=== PATIENT | male | born 1950 | race Caucasian/White ===

== ENCOUNTER 2020-01-08 11:35 | Outpatient (CLI) | payer MEDICARE, OTHER, SELFPAY ==
--- NOTE | ~2020-01-08 | US_ITS ---
EXAMINATION: US venous doppler LE RT DATE: 01/08/2020 12:07 INDICATION: Right lower limb swelling TECHNIQUE: Haines scale images without and with compression and Doppler images of the right lower extre mity veins were obtained. COMPARISON: None FINDINGS: The right common femoral vein, profunda femoral vein, and greater saphenous vein are patent . The femoral vein, popliteal vein, peroneal trunk, posterior tibial veins are thrombosed. IMPRESSION: 1. Deep venous thrombosis from the femoral vein through the posterior tibial veins. Reviewed, dictated and finalized at location A. IMPRESSION: 1. Deep venous thrombosis from the femoral vein through the posterior tibial ve ins.
== END 2020-01-08 11:36 | disposition home or self-care (01) ==
PROVIDERS: PCP Family Medicine; Visit Provider Physician Assistant
DX: R60.0 Localized edema (principal); I82.411 Acute embolism and thrombosis of right femoral vein
CPT/HCPCS: 93971

== ENCOUNTER 2020-08-17 07:35 | Outpatient (CLI) | payer MEDICARE, OTHER, SELFPAY ==
--- NOTE | ~2020-08-17 | XR_ITS ---
EXAMINATION: XR chest 2V 08/17/2020 07:51 INDICATION: Malignant neoplasm with hormone sensitive status PROCEDURE: PA and lateral views of the chest COMPARISON: 10/11/2017 FINDINGS: The lungs are clear. The cardiomediastinal silhouette is within normal limits. There are no pleural effusions. There is no pneumothorax suspected. IMPRESSION: 1: NO ACUTE CARDIOPULMONARY DISEASE. Reviewed, dictated and finalized at location B.
--- NOTE | ~2020-08-17 | NM_ITS ---
EXAMINATION: NM bone scan whole body DATE: 08/17/2020 11:44 INDICATION: Malignant neoplasm TECHNIQUE: 24.6 mCi Tc-99m HDP was administered intravenously. Delayed whole-body scintigrams were o btained. COMPARISON: CT abdomen and pelvis dated 08/17/2020 and chest radiograph dated 08/17/2020 FINDINGS: Mild joint centered increased uptake at the bilateral sternoclavicular, acromioclavicular and glenohu meral joints as well as several costovertebral joints in the thoracic spine. No other suspicious foci of abnormal bone uptake to suggest metastatic disease. IMPRESSION: 1. No suspicious foci to suggest metastatic disease. Reviewed, dictated and finalized at location A.
--- NOTE | ~2020-08-17 | CT_ITS ---
EXAMINATION: CT abdomen pelvis w con DATE: 08/17/2020 08:08 INDICATION: Malignant neoplasm TECHNIQUE: Computed tomography (CT) of the abdomen and pelvis was performed with 100 cc Omnipaque 350 intravenous contrast. The dose-length product was 429.37 mGy-cm. Automated exposure control and iter ative reconstruction technique were employed. COMPARISON: None. FINDINGS: Lung bases unremarkable. Heart size normal. No significant pleural or pericardial effusion. Small hiatal hernia. There is mild atherosclerosis of the aorta without aneurysm. No lymphadenopathy . Enlarged prostate gland. Incidental note is made of left scrotal calcification. Small fat-containin g umbilical hernia. Multiple liver cysts, largest measuring approximately 2 cm. Fatty infiltration of the liver. The sple en, pancreas, adrenal glands are unremarkable. No significant hydronephrosis. Gallbladder is contract ed. There are small subcentimeter hypodensities of the kidneys, too small to characterize, although l ikely benign cysts. Nonobstructive bowel gas pattern. Normal appendix. Colonic diverticulosis without evidence for diverticulitis. No free air or free fluid. Mild lumbar spondylosis for age. Wedge defor mity of L1 is likely chronic. No lytic or blastic lesions identified. Mild osteoarthritis of the hips . Small fat-containing right inguinal hernia. IMPRESSION: 1. Prostate enlargement. 2: Fatty infiltration of the liver with multiple cysts. 3: Small hiatal hernia. Small fat-containing umbilical hernia. Reviewed, dictated and finalized at location B.
[2020-08-17 07:59] LABS: Estimated Glomerular Filt Rate 54
== END 2020-08-17 07:36 | disposition home or self-care (01) ==
PROVIDERS: PCP Family Medicine; Visit Provider Urology
DX: C80.1 Malignant (primary) neoplasm, unspecified (principal); Z19.1 Hormone sensitive malignancy status; N40.0 Benign prostatic hyperplasia without lower urinary tract symptoms; K76.0 Fatty (change of) liver, not elsewhere classified; K44.9 Diaphragmatic hernia without obstruction or gangrene
CPT/HCPCS: 71046; 74177; 78306; A9561; Q9967

== ENCOUNTER 2020-09-07 10:01 | Outpatient (CLI) | payer MEDICARE, OTHER, SELFPAY ==
--- NOTE | 2020-09-07 11:06 | ECG_ITS ---
Measurements Intervals [place] Rate: 50 P: 65 VA: 192 QRS: -33 QRSD: 108 T: -4 QT: 458 QTc: 420 Interpretive Statements SINUS BRADYCARDIA ATRIAL PREMATURE COMPLEX POSSIBLE LEFT ATRIAL ENLARGEMENT LEFT AXIS DEVIATION INCOMPLETE RIGHT BUNDLE BRANCH BLOCK POOR R WAVE PROGRESSION, ANTERIOR LEADS BORDERLINE ST-T WAVE ABNORMALITY- INFERIOR LEADS BORDERLINE ECG Electronically Signed On 09-07-2020 12:19:52 CDT by Duane Kraus D.O.
[2020-09-07 12:10] LABS: Basophils Percent Auto 0.6 % (0.2-1.2); Eosinophils Absolute Auto 0.1 K/mm3 (0-0.3); Hematocrit 46.9 % (42.0-52.0); Hemoglobin 16.1 g/dL (14.0-18.0); Immature Granulocyte Absolute 0.02 K/mm3 (0.00-0.031); Immature Granulocyte Percent A 0.3 % (0-0.5); Lymphocytes Absolute Auto 1.21 K/mm3 (0.9-3.2); Lymphocytes Percent Auto 17.1 % (18.3-44.2); Mean Corpuscular HGB Conc 34.3 g/dl (32-36); Mean Corpuscular Hemoglobin 31.2 pg (26-34); Mean Corpuscular Volume 90.9 fl (80-100); Mean Platelet Volume 9.6 fl (7.4-10.4); Monocytes Absolute Auto 0.6 K/mm3 (0.1-0.6); Monocytes Percent Auto 8.5 % (2.6-8.5); Neutrophils Absolute Auto 5.1 K/mm3 (1.3-6.7); Neutrophils Percent Auto 71.5 % (45.5-73.1); Platelet Count Result 187 k/mm3 (150-375); Red Blood Count 5.16 M/mm3 (4.6-6.20); Red Cell Distribution Width 12.1 % (11.5-14.5); White Blood Count 7.1 K/mm3 (4.5-10.0)
[2020-09-07 12:12] LABS: Add Urine Microscopic? NO; Appearance Urine Clear (Clear); Bilirubin Urine Negative (Negative); Blood Urine Negative (Negative); Color Urine Yellow (Yellow); Glucose Urine UA Negative (Negative); Ketones Urine Negative (Negative); Leukocyte Esterase Ur Negative LEU/UL (Negative); Nitrate Urine Negative (Negative); Protein Urine Negative (Negative); Specific Grav Ur 1.017 (1.001-1.035); Urobilinogen Urine Negative mg/dL (<2.0)
[2020-09-07 12:19] LABS: INR 0.9; Prothrombin Time 12.5 Seconds (11.1-14.7)
[2020-09-07 12:20] LABS: Partial Thromboplastin Time 22.2 SECONDS (22.3-36.8)
[2020-09-07 12:23] LABS: Alanine Aminotransferase 18 U/L (4-50); Albumin Level 4.1 g/dL (3.5-5.1); Alkaline Phosphatase 59 U/L (38-126); Anion Gap 4 mmol/L (8-16); Aspartate Amino Transferase 27 U/L (17-59); Bilirubin,Total 0.7 mg/dL (0.2-1.3); Blood Urea Nitrogen 18 mg/dL (9-20); Calcium 9.1 mg/dL (8.4-10.2); Carbon Dioxide 30 mmol/L (22-30); Chloride 105 mmol/L (98-107); Estimated Glomerular Filt Rate 60; Glucose 91 mg/dL (75-110); Sodium 139 mmol/L (137-145)
== END 2020-09-07 10:02 | disposition home or self-care (01) ==
LOC: ANHSURGERY 10:05
PROVIDERS: PCP Family Medicine; Visit Provider Urology
DX: C61 Malignant neoplasm of prostate (principal); Z01.818 Encounter for other preprocedural examination; I45.10 Unspecified right bundle-branch block
CPT/HCPCS: 36415; 80053; 81003; 85025; 85610; 85730; 86850; 86900; 86901; 93005

== ENCOUNTER → 2020-09-14 04:33 | Outpatient (CLI) | payer MEDICARE, OTHER, SELFPAY ==
[2020-09-14 19:57] LABS: SARS-CoV-2 RNA PCR Negative
== END ==
PROVIDERS: PCP Family Medicine; Visit Provider Urology
DX: Z01.812 Encounter for preprocedural laboratory examination (principal); Z20.822 Contact with and (suspected) exposure to COVID-19
CPT/HCPCS: C9803; U0003; U0005

== ENCOUNTER 2020-09-17 01:51 | Day surgery (SDC) | payer MEDICARE, OTHER, SELFPAY ==
[2020-09-07 10:37] VITALS: BMI 26.5
[2020-09-07 11:05] VITALS: BP 138/86; PULSE 55; RESP 16; TEMP 36.9; O2SAT 99
--- NOTE | 2020-09-14 07:50 | PM.IMHP ---
H&P: HPI History of Present Illness Date/Time: 09/14/20 07:50 Patient is a 70-year-old white male recently found to have a PSA of 10.6. Prostate biopsy revealed prostate adenocarcinoma Samina 7 8 and 9 in 6 of [address] scan of the abdomen and pelvis, bone scan and chest x-ray showed no evidence of metastatic disease. Prostate volume by ultrasound was 40.4 cc. After careful discussion of therapeutic options including active surveillance, radiation therapy and its various forms, robotic prostatectomy an androgen deprivation, he has opted for the surgical treatment. He is aware the risk including, but not limited to, failure to control his cancer, adverse cardiopulmonary events, urinary incontinence, erectile dysfunction and rectal injury. Chief Complaint: Prostate cancer Review of Systems Cardiovascular: Cardiovascular: Denies chest pain, Denies lightheadedness, Denies palpitations and Denies dyspnea Respiratory: Respiratory: Denies dyspnea Gastrointestinal: Gastrointestinal: Denies diarrhea, Denies nausea and Denies vomiting Genitourinary: Genitourinary: Denies hematuria and Denies dysuria Endocrine: Endocrine: Denies palpitations [facility] Past Medical History Medical History (Updated 09/14/20 @ 07:53 by Ben Nicholson MD) Hepatitis C antibody test negative (01/09/17) History of broken nose (~1973) Surgical History Surgical History History of ankle surgery Family History Family History Father Diabetes mellitus Family history of glaucoma Hypertension Malignant neoplasm of prostate Family history of coronary artery disease Mother Hypertension Cerebrovascular accident Family history of dementia Social History Social History Smoking status: Never smoker Alcohol intake: current Spiritual care concerns: No Meds Home Medications and Allergies Home Medications Medication Instructions Recorded Confirmed Type finasteride 5 mg tablet 5 mg PO QPM 10/10/19 09/07/20 History Allergies Allergy/AdvReac Type Severity Reaction Status Date / Time nut - unspecified Allergy Unknown gets skin Verified 09/07/20 10:11 nodules under his skin prednisone Allergy Unknown mottled Verified 09/07/20 10:11 tongue Exam Const: General: no acute distress Resp: Effort & Inspection: normal respiratory effort GI: Inspection: non-distended GI Palp: No abdominal tenderness and No Guarding due to palpation present (GI) Auscultation: normal bowel sounds Assessment and Plan Assessment and plan (1) Prostate cancer: Code(s): C61 - Malignant neoplasm of prostate Status: Acute Assessment and Plan: Robotic assisted prostatectomy and bilateral pelvic lymphadenectomy.
--- NOTE | 2020-09-16 11:12 | WPDANESEPPF ---
Anes - Initial Pre Proc Eval Procedure: Operation Date: 09/17/20 07:30 Proposed Procedures p Robotic Assisted Laparoscopic Prostatectomy With Bilateral Lymph Node Dissection - Ben Nicholson MD Date/Time: 09/16/20 11:12 Surgeon: Ben Nicholson MD Pre Op Diagnosis: prostate ca Patient Data Age: 70 Gender: M Height: 1.73 m Weight: 79.2 kg Last Vital Signs Temp 36.9 C 09/07/20 11:05 Pulse 55 L 09/07/20 11:05 Resp 16 09/07/20 11:05 BP 138/86 09/07/20 11:05 Pulse Ox 99 09/07/20 11:05 Allergies Allergy/AdvReac Type Severity Reaction Status Date / Time nut - unspecified Allergy Mild gets skin Verified 09/17/20 06:00 nodules under his skin prednisone Allergy Mild mottled Verified 09/17/20 06:00 tongue Home Medications Medication Instructions Recorded Confirmed Type finasteride 5 mg tablet 5 mg PO QPM 10/10/19 09/17/20 History ECG: Date of Service: 09/07/20 Procedure(s): CA 12 lead EKG Accession Number(s): [id number] cc: ~ Measurements Intervals [place] Rate: 50 P: 65 MD: 192 QRS: -33 QRSD: 108 T: -4 QT: 458 QTc: 420 Interpretive Statements SINUS BRADYCARDIA ATRIAL PREMATURE COMPLEX POSSIBLE LEFT ATRIAL ENLARGEMENT LEFT AXIS DEVIATION INCOMPLETE RIGHT BUNDLE BRANCH BLOCK POOR R WAVE PROGRESSION, ANTERIOR LEADS BORDERLINE ST-T WAVE ABNORMALITY- INFERIOR LEADS BORDERLINE ECG Electronically Signed On 09-07-2020 12:19:52 CDT by Duane Kraus D.O. Dictated By: Duane Kraus DO 09/07/20 1219 Patient hx anesthesia problems: none Family hx anesthesia problems: none PMFSH Past Medical History Medical History (Updated 09/16/20 @ 11:12 by Dusty Baires MD) DVT (deep venous thrombosis) Hepatitis C antibody test negative (01/09/17) History of broken nose (~1973) Prostate cancer Pure hypercholesterolemia, unspecified Surgical History Surgical History History of ankle surgery Family History Family History Father Diabetes mellitus Family history of glaucoma Hypertension Malignant neoplasm of prostate Family history of coronary artery disease Mother Hypertension Cerebrovascular accident Family history of dementia Social History Social History Alcohol intake: current Living arrangements: with family Spiritual care concerns: No Anes - Eval Final PreProcedure Day of Procedure 09/16/20 11:12 Patient weight: obese Heart: regular rate and rhythm Lungs: clear to auscultation and normal air movement Airway: Mallampati scale class II Neurological: alert and oriented Last oral intake: >/= 8 hours ASA classification: III Emergent: no Anesthetic plan: proceed Anesthesia type and monitoring: general ETT Informed Consent: The patient's anesthetic plan and its attendant risks and benefits were discussed with the patient/family/POA. Questions were solicited and answers provided to the satisfaction of the patient/family/POA.
[2020-09-17] VITALS (12 sets, daily range): BP systolic 112–151; BP diastolic 45–85; PULSE 49–75; RESP 14–18; TEMP 36–37.1; O2SAT 94–100; BMI 26.6
[2020-09-17] MEDS: LACTATED RINGERS 1,000 ML 30 ML IV CONT ×3 (06:35→11:35)
--- NOTE | 2020-09-17 06:53 | WPDHPUPDATE1 ---
History and Physical Update Update Date/Time: 09/17/20 06:53 History and Physical has been reviewed, including an updated exam of the patient. There are NO changes in the patient's condition. Risks, benefits, and alternatives have been discussed and questions answered. Patient agrees to proceed with procedure.
[2020-09-17] MEDS: ceFAZolin 2 GM/D5W 50 ML 2 GM/50 ML BAG IVPB (07:18)
--- NOTE | 2020-09-17 11:05 | PM.PROC ---
Procedure Note - Detailed Date of procedure: 09/17/20 Pre-op diagnosis: prostate ca Post-op diagnosis: same Procedure performed: Robotic assisted laparoscopic prostatectomy and bilateral pelvic lymphadenectomy. Description of procedure: The patient was brought to the operative suite, where he was prepped and draped in routine sterile fashion while in a dorsal lithotomy, deep Trendelenburg position. A supraumbilical 10 mm trocar was placed after insufflation of the abdomen with a Veress needle. Three robotic ports were then placed under direct vision. Two of these were placed in the right lower quadrant - 10 cm and 20 cm lateral to, and in line with, the umbilicus. A third robotic trocar was placed 10 cm to the left of the umbilicus, and 20 cm to the left of the umbilicus, a 12 mm standard laparoscopic trocar was placed to be used as an automobile mechanic assistant port. Lastly, a 5 mm trocar was placed in the left upper quadrant midway between the umbilicus and the left robotic trocar. Attention was then turned to the prostatectomy. I opted for a posterior approach in this patient. An incision was made in the parietal peritoneum along the posterior bladder/posterior prostate about 2 cm above the reflection of the peritoneum over the anterior rectum. The seminal vesicles and vas deferens were immediately identified. Dissection is undertaken in a fashion so as to avoid electrocautery as much as possible, particularly near the tips of the seminal vesicles. Dissection was also carried out in the midline so as to avoid any encounters with the ureters. The vas deferens and the seminal vesicles were dissected in their entirety to the base of the prostate. The plane anterior to Denoviller's fascia, anterior to the rectum and posterior to the prostate was then developed. I then dropped the bladder by incising the anterior parietal peritoneum just lateral to the median umbilical ligaments bilaterally. The bladder was dropped from the anterior abdominal and pelvic wall. The endopelvic fascia was identified and incised bilaterally, allowing for dissection of the posterior-lateral aspect of the prostate. The puboprostatic ligaments were transected near their origin from the posterior pubic ramus. This posterior lateral dissection of the prostate is also undertaken in a fashion so as to avoid electrocautery as much as possible. The dorsal vein of the penis is then secured with an 0 -Vicryl ligature. Attention is then turned to the bladder neck. The anterior bladder neck is incised at the vesico-prostatic junction. The previously placed urethral catheter was drawn through the urethrotomy. A very small bladder neck was maintained throughout the remainder of this dissection. The posterior bladder neck was incised in a fashion so as to avoid any injury to the ureteral orifices. Again, the small aperture of the bladder neck was maintained. The previously dissected vas deferens and the seminal vesicles were brought through the posterior bladder neck incision. The lateral prostatic pedicles were then carefully dissected from the lateral aspect of the prostate bilaterally. The prostatic pedicles were secured with Weck clips and transected. The neurovascular bundles were carefully dissected from the posterior-lateral aspect of the prostate. The dorsal vein of the penis was incised with electrocautery. Using cold scissors, the urethra was incised. After withdrawing the previously placed urethral catheter, the posterior urethra was sharply incised, as was the rectalurethralis muscle. Attention was then turned to a bilateral pelvic lymphadenectomy. The limits of this dissection were similar bilaterally. Specifically, the limits were the bifurcation of the common iliac vein proximally, the inguinal ligament distally, the obturator nerve posteriorly and the anterior aspect to the external iliac vein laterally. This dissection was undertaken with care to avoid any injury to the obturator nerve. The p
[2020-09-17] MEDS: fentaNYL CITRATE INJ (*CRX) 100 MCG/2 ML VIAL 25 MCG IV PUSH (11:41)
--- NOTE | 2020-09-17 12:15 | ADMGEN ---
This patient, Zeyad Baires, was admitted to Medical Room 261-01 from PACU report received from [facility]. Patient/family oriented to hospital policies and general routines including ID bracelet, bed and alarms, visiting hours, pain management, procedures, bathroom and other care routines, personal items, smoking policy, room service/diet, and visiting hours. Information on how to activate the Rapid Response Team has been discussed. Patient/Family are encouraged to report perceived risks to care and to ask questions if they do not understand what they are told or what they should do.
[2020-09-17] MEDS: LACTATED RINGERS 1,000 ML 125 ML IV CONT ×2 (13:00→21:06)
[2020-09-18 00:22] VITALS: BP 133/75; PULSE 55; RESP 18; TEMP 36.9; O2SAT 99
[2020-09-18 05:33] LABS: Hematocrit 41.9 % (42.0-52.0); Hemoglobin 14.6 g/dL (14.0-18.0)
[2020-09-18] MEDS: LACTATED RINGERS 1,000 ML 125 ML IV CONT ×2 (05:35→14:13)
[2020-09-18 05:40] LABS: Anion Gap 2 mmol/L (8-16); Blood Urea Nitrogen 13 mg/dL (9-20); Calcium 8.3 mg/dL (8.4-10.2); Carbon Dioxide 25 mmol/L (22-30); Chloride 110 mmol/L (98-107); Estimated CRCL calculation 48 ml/min; Estimated Glomerular Filt Rate 60; Glucose 103 mg/dL (75-110); Sodium 137 mmol/L (137-145)
[2020-09-18 05:48] VITALS: BP 127/71; PULSE 61; RESP 20; TEMP 37; O2SAT 95
[2020-09-18 06:00] VITALS: BP 127/71; PULSE 61; RESP 20; TEMP 37; O2SAT 95
--- NOTE | 2020-09-18 06:56 | WPDUROPN2 ---
Progress Note: A&P Assessment and Plan (1) Prostate cancer: Code(s): C61 - Malignant neoplasm of prostate Status: Acute Assessment and Plan: Increase diet/activity. Likely home this afternoon. Subjective Subjective Date/Time Seen: 09/18/20 06:56 Mild right shoulder discomfort without weakness. Otherwise, doing well. Review of Systems Cardiovascular: Cardiovascular: Denies chest pain, Denies lightheadedness, Denies palpitations and Denies dyspnea Respiratory: Respiratory: Denies dyspnea Gastrointestinal: Gastrointestinal: Denies diarrhea, Denies nausea and Denies vomiting Genitourinary: Genitourinary: Denies hematuria and Denies dysuria Endocrine: Endocrine: Denies palpitations Exam Const: General: no acute distress Resp: Effort & Inspection: normal respiratory effort GI: Inspection: normal to inspection and non-distended GI Palp: No abdominal tenderness and No Guarding due to palpation present (GI) Auscultation: normal bowel sounds Objective Data Vital Signs Vital Signs: Vital Signs - 24 hr 09/17/20 07:06 09/17/20 10:50 09/17/20 11:00 Temperature 97.5 F L 97.1 F L Pulse Rate 51 L 62 59 L Respiratory Rate 16 15 16 Blood Pressure 122/78 121/75 113/65 Pulse Oximetry 96 98 99 09/17/20 11:15 09/17/20 11:32 09/17/20 11:54 Temperature Pulse Rate 53 L 54 L 49 L Respiratory Rate 14 16 16 Blood Pressure 112/45 L 119/70 125/73 Pulse Oximetry 98 98 100 09/17/20 12:20 09/17/20 12:35 09/17/20 13:05 Temperature 96.8 F L 96.9 F L 97.4 F L Pulse Rate 57 L 50 L 66 Respiratory Rate 14 14 14 Blood Pressure 135/77 136/75 150/74 H Pulse Oximetry 99 98 100 09/17/20 14:00 09/17/20 18:00 09/17/20 21:48 Temperature 97.3 F L 98.2 F 98.7 F Pulse Rate 59 L 75 67 Respiratory Rate 14 18 18 Blood Pressure 131/79 151/85 H 133/70 Pulse Oximetry 100 95 94 09/18/20 00:22 Temperature 98.5 F Pulse Rate 55 L Respiratory Rate 18 Blood Pressure 133/75 Pulse Oximetry 99 Intake/Output Intake/Output: Intake & Output 09/15/20 09/16/20 09/17/20 09/18/20 23:59 23:59 23:59 23:59 Intake Total 2660 1200 Output Total 500 Balance 2160 1200 Meds/Results Medications: Active Medications Generic Name Dose Route Start Last Admin Trade Name Freq PRN Reason Stop Dose Admin Fentanyl Citrate 25 mcg 09/16/20 11:10 09/17/20 11:41 Fentanyl Citrate Inj (*Crx) 100 Mcg/2 Ml Vial IV PUSH 25 mcg Q2M PRN Administration Pain Hydromorphone HCl 0.25 mg 09/16/20 11:10 Hydromorphone Hcl Inj (*Crx) 1 Mg/Ml Syr IV PUSH Q5M PRN Pain Hyoscyamine 0.125 mg 09/17/20 12:03 Hyoscyamine Sulfate 0.125 Mg Tablet SUBLINGUAL Q4H PRN Bladder Spasm Lactated Ringer's 1,000 mls @ 30 mls/hr 09/16/20 11:10 09/17/20 14:47 Lr - Lactated Ringers Iv IV CONT Not Given .Q24H ZACKARY Lactated Ringer's 1,000 mls @ 30 mls/hr 09/16/20 11:10 09/17/20 12:02 Lr - Lactated Ringers Iv IV CONT Infused .Q24H ZACKARY Infusion Lactated Ringer's 1,000 mls @ 125 mls/hr 09/17/20 12:03 09/18/20 05:35 Lr - Lactated Ringers Iv IV CONT 125 mls/hr .Q8H ZACKARY Administration Acetaminophen 1,000 mg in 100 mls @ 400 mls/hr 09/17/20 13:00 09/18/20 06:34 Ofirmev 1,000 Mg Ivpb IVPB 09/18/20 13:01 Infused Q6H ZACKARY Infusion Ketorolac Tromethamine 15 mg 09/17/20 12:03 Ketorolac 15 Mg/Ml Vial (*Bkc) IV PUSH 09/18/20 12:04 Q6H PRN Pain Rated 4-6 Levofloxacin 500 mg 09/18/20 09:00 Levofloxacin Tab 500 Mg Tablet PO DAILY ZACKARY Naloxone HCl 0.1 mg 09/17/20 12:03 Naloxone Hcl 0.4 Mg/Ml Vial IV PUSH Q2M PRN Opiate Reversal Ondansetron HCl 4 mg 09/16/20 11:10 Ondansetron Inj 4 Mg/2 Ml Vial IV PUSH ONCE PRN Nausea Oxycodone HCl 5 mg 09/16/20 11:10 Oxycodone Hcl (*Crx) 5 Mg Tab Ir PO ONCE PRN Pain Labs Labs: Laboratory Results - last 24 hr 09/18/20 09/18/20 05:12 05:12 Hgb 14
--- NOTE | 2020-09-18 08:54 | WPDANESPN ---
Anes - Prog Note Post-Op Date/Time: 09/18/20 08:54 Cardiovascular status: normal Respiratory status: normal Airway patency: baseline Mental status: baseline Post-Op hydration status: normal Vital Signs: Last Vital Signs Temp 37.0 C 09/18/20 06:00 Pulse 61 09/18/20 06:00 Resp 20 09/18/20 06:00 BP 127/71 09/18/20 06:00 Pulse Ox 95 09/18/20 06:00 Pain Score (VAS): 0 I/O: Intake & Output 09/17/20 09/18/20 09/18/20 23:59 07:59 15:59 Intake Total 1840 1500 Output Total 500 2700 Balance 1340 -1200 Laboratory Tests 09/18/20 05:12 09/18/20 05:12 09/18/20 09/18/20 05:12 05:12 Hgb 14.6 Hct 41.9 L Sodium 137 Potassium 4.0 Chloride 110 H Carbon Dioxide 25 Anion Gap 2 L BUN 13 D Creatinine 1.20 Estim Creat Clear Calc 48 Estimated GFR 60 Glucose 103 Calcium 8.3 L Post-procedural complaints: none Patient Feedback: Patient satisfied with anesthetic care.
[2020-09-18 09:48] VITALS: BP 176/86; PULSE 59; RESP 18; TEMP 36.2; O2SAT 99
[2020-09-18] MEDS: KETOROLAC 15 MG/ML VIAL (*BKC) IV PUSH (10:19)
[2020-09-18 14:00] VITALS: BP 125/67; PULSE 60; RESP 16; TEMP 36.5; O2SAT 95
--- NOTE | 2020-09-18 16:39 | PM.DS ---
DS: Admitting Diagnosis Admitting Diagnosis Admitting Diagnosis: Prostate cancer DS: Discharge Diagnosis Discharge Diagnosis (1) Prostate cancer: Code(s): C61 - Malignant neoplasm of prostate Status: Acute DS: Summary Hospital Course Hospital Course: This patient was admitted on the morning of his planned robotic prostatectomy. This procedure was uneventful, as was his postoperative course. By the evening of the procedure he was sitting at the bedside in tolerating a liquid diet. The following morning he was ambulating freely and tolerating regular food. His catheter drainage remained essentially clear throughout. His postoperative hemoglobin and serum creatinine were unremarkable. At the time of discharge he has been instructed in appropriate care for his Beck[place] catheter with both a leg bag and bedside bag. He will be discharged with plans to follow-up in 1 week with a cystogram. Time Spent with Patient Time attestation: Total time spent providing and/or coordinating discharge services: 15min Exam Const: General: no acute distress Resp: Effort & Inspection: normal respiratory effort GI: Inspection: non-distended GI Palp: No abdominal tenderness and No Guarding due to palpation present (GI) Auscultation: normal bowel sounds Urinary Catheter: Urinary Catheter: patent and draining and urine clear DS: Data Data Completed and Pending Pending studies at discharge: Pending at discharge 09/17/20 08:49 Surgical [PTH] Routine Surgical [PTH] Routine Surgical [PTH] Routine Labs on day of discharge: Labs from last 24 hours 09/18/20 09/18/20 05:12 05:12 Hgb 14.6 Hct 41.9 L Sodium 137 Potassium 4.0 Chloride 110 H Carbon Dioxide 25 Anion Gap 2 L BUN 13 D Creatinine 1.20 Estim Creat Clear Calc 48 Estimated GFR 60 Glucose 103 Calcium 8.3 L Discharge Plan Discharge Patient Disposition: Home, Self-Care Discharge Instructions: 1) Beckford catheter -> leg bag / bedside bag at night. 2) No lifting/straining >15lbs. x3 weeks. 3) No driving x1-week. 4) Resume normal, pre-operative diet. 5) My office will contact regarding follow-up in 1-week with cystogram. Stand Alone Forms: General Discharge Instructions Discharge Orders: Discharge Order (Routine); Ordered 09/18/20 Ordered By: Ben Nicholson Discharge Medications: New hydrocodone-acetaminophen 5-325 mg tablet 1 - 2 tablet PO Q6H PRN (Reason: pain) Qty: 24 RF: 0 ciprofloxacin HCl 500 mg tablet 500 mg PO Q12H Qty: 10 RF: 0 docusate sodium [Colace] 100 mg capsule 100 mg PO DAILY Qty: 30 RF: 0 hyoscyamine sulfate 0.125 mg tablet 0.125 mg PO Q6H PRN (Reason: bladder spasms) Qty: 20 RF: 2 Discontinued finasteride 5 mg tablet 5 mg PO QPM RF: 0
== END 2020-09-18 17:20 | disposition home or self-care (01) ==
LOC: ANHSURGERY 05:52 → ANH2MED 12:10
PROVIDERS: PCP Family Medicine; Visit Provider Urology
PROC: 0VT04ZZ Resection of Prostate, Percutaneous Endoscopic Approach (ICD-10-PCS; CPT 55867; principal; 2020-09-17 07:30)
DX: C61 Malignant neoplasm of prostate (principal); N40.0 Benign prostatic hyperplasia without lower urinary tract symptoms; Z86.718 Personal history of other venous thrombosis and embolism
CPT/HCPCS: 55866; 38571; 36415; 80048; 85014; 85018; 88305; 88307; 88309; A9270; J0131; J0690; J1885; J3010; J7030; J7120; Q9968

== ENCOUNTER 2020-09-25 10:57 | Outpatient (CLI) | payer MEDICARE, OTHER, SELFPAY ==
--- NOTE | ~2020-09-25 | XR_ITS ---
EXAMINATION: XR cystogram DATE: 09/25/2020 11:49 INDICATION: Prostate cancer TECHNIQUE: Water-soluble contrast was gravity-infused through the patient's Beckford catheter. Multiple fluoroscopic images were obtained. Fluoroscopy exposure time was 1.3 minutes. The DAP for this proced ure was 17.674 Gycm2. COMPARISON: None. FINDINGS: The bladder contour is normal. There is no evidence of contrast leakage from the bladder. T here is mild osteoarthritis of the hips. Vascular calcifications are noted. IMPRESSION: 1. No evidence of bladder leak. Reviewed, dictated and finalized at location A.
== END 2020-09-25 10:58 | disposition home or self-care (01) ==
PROVIDERS: PCP Family Medicine; Visit Provider Urology
DX: C61 Malignant neoplasm of prostate (principal)
CPT/HCPCS: 51600; 74430; Q9967

== ENCOUNTER 2021-05-26 11:27 | Outpatient (CLI) | payer MEDICARE, OTHER, SELFPAY ==
--- NOTE | ~2021-05-26 | XR_ITS ---
XR chest 2V DATE: 05/26/2021 11:50 INDICATION: Cough TECHNIQUE: PA and lateral views COMPARISON: 08/17/2020 PA and lateral chest FINDINGS: Heart size is within normal range. Is aortic calcification, ectasia and tortuosity. No kris r or mediastinal enlargement is detected. No pulmonary infiltrate or consolidation, pleural effusion or pulmonary vascular congestion or pneumo thorax is detected. IMPRESSION: No active cardiopulmonary disease or significant change since 08/17/2020 Reviewed, dictated and finalized at location A. RANCE CLAIMS REPRESENTATIVE IMPRESSION: No active cardiopulmonary disease or significant change since 2020
== END 2021-05-26 11:28 | disposition home or self-care (01) ==
PROVIDERS: PCP Family Medicine; Visit Provider Family Medicine
DX: R05.9 Cough, unspecified (principal)
CPT/HCPCS: 71046

== ENCOUNTER 2022-01-05 13:31 | Outpatient (CLI) | payer MEDICARE, OTHER, SELFPAY ==
--- NOTE | ~2022-01-05 | PE_ITS ---
EXAMINATION: PET_PETPSMAST_PT DATE: 01/05/2022 16:01 INDICATION: Prostate cancer. TECHNIQUE: 10.038 mCi Piflufolastat F-18 was administered i.v. Low dose computed tomography (CT) imag es were acquired from the base of the brain to the proximal thighs for attenuation correction and hannah tomic localization. Automated exposure control was employed. Dose-length product (DLP) was 631 mGy-cm . Positron emission tomography (PET) images were acquired in the same distribution. COMPARISON: Bone scan 08/17/2020, CT abdomen and pelvis 08/17/2020 FINDINGS: Head/neck: There are no pathologically enlarged lymph nodes. There is mucosal thickening in the paran ariadna sinuses. Chest: There is mild scarring at the lung apices. No pleural effusion. Cardiomegaly is noted. There a re coronary artery calcifications. No pericardial effusion. There is mild bilateral gynecomastia. The re are no pathologically enlarged lymph nodes. Abdomen/pelvis/proximal thighs: There are cysts in the liver measuring up to 2.4 cm. The gallbladder, spleen, pancreas, adrenal glands, and kidneys are normal. There is an umbilical hernia containing fa t. There is a right inguinal hernia containing fat. There are changes of prostatectomy. There are no dilated loops of bowel. The appendix is normal. There are no pathologically enlarged lymph nodes. The re is no free intraperitoneal fluid. There is a 1.7 x 0.8 cm sclerotic lesion in left ischium without increased activity. This finding is unchanged in size from 08/17/2020, but demonstrates interval decr ease in attenuation. Bone scan on 08/17/20 did not show increased activity in this area. IMPRESSION: 1. Chronic sclerotic lesion in left ischium without increased activity. This finding may be a benign bone island or metastatic disease. Reviewed, dictated and finalized at location A. IMPRESSION: 1. Chronic sclerotic lesion in left ischium without increased activity. This fi nding may be a benign bone island or metastatic disease.
== END 2022-01-05 13:32 | disposition home or self-care (01) ==
PROVIDERS: PCP Family Medicine; Visit Provider Urology
DX: C61 Malignant neoplasm of prostate (principal); C79.51 Secondary malignant neoplasm of bone
CPT/HCPCS: 78815; A9595

== ENCOUNTER 2022-01-18 08:32 | Outpatient (CLI) | payer MEDICARE, OTHER, SELFPAY ==
--- NOTE | ~2022-01-18 | NM_ITS ---
EXAMINATION: NM bone scan whole body DATE: 01/18/2022 12:36 INDICATION: Malignant neoplasm of the prostate TECHNIQUE: 28.5 mCi Tc-99m HDP was administered intravenously. Delayed whole-body scintigrams were o btained. COMPARISON: Bone scan dated 08/17/2020. PET/CT dated 01/05/2022 FINDINGS: Small focus of mild increased uptake in the region of the right patella which could be related either patellofemoral osteoarthritis or distal quadriceps enthesopathy. No other suspicious foci of abnorma l bone uptake to suggest metastatic disease. IMPRESSION: 1. No osseous metastatic disease. Reviewed, dictated and finalized at location A.
== END 2022-01-18 08:33 | disposition home or self-care (01) ==
PROVIDERS: PCP Family Medicine; Visit Provider Radiology Radiation Oncology
DX: C61 Malignant neoplasm of prostate (principal)
CPT/HCPCS: 78306; A9561

== ENCOUNTER 2022-01-26 14:25 | Outpatient (CLI) | payer MEDICARE, OTHER, SELFPAY ==
--- NOTE | ~2022-01-26 | MR_ITS ---
EXAMINATION: MR pelvis wo/w con DATE: 01/26/2022 15:15 INDICATION: Malignant neoplasm of prostate. TECHNIQUE: Magnetic resonance imaging (MRI) of the pelvis was performed without and with 15 mL MultiH ance intravenous contrast. COMPARISON: Head CT 01/05/2022 FINDINGS: The prostate is absent. There is a right inguinal hernia containing fat. There are no pathologically enlarged lymph nodes. IMPRESSION: 1. No evidence of metastatic disease. Reviewed, dictated and finalized at location A.
== END 2022-01-26 14:26 | disposition home or self-care (01) ==
LOC: ANHIMG 14:31
PROVIDERS: PCP Family Medicine; Visit Provider Radiology Radiation Oncology
DX: C61 Malignant neoplasm of prostate (principal)
CPT/HCPCS: 72197; A9577

== ENCOUNTER 2023-02-08 09:13 | Outpatient (CLI) | payer MEDICARE, OTHER, SELFPAY ==
--- NOTE | ~2023-02-08 | US_ITS ---
EXAMINATION: US venous doppler LE RT DATE: 02/08/2023 10:06 INDICATION: Right lower limb pain TECHNIQUE: Grayscale ultrasound images without and with compression and Doppler ultrasound images of the right lower extremity veins were obtained. COMPARISON: 01/08/2020 FINDINGS: There is residual peripheral nonocclusive likely chronic deep venous thrombosis in the partially comp ressible right popliteal, gastrocnemius and distal femoral veins. The visualized portions of right co mmon femoral vein, profunda (deep) femoral vein, proximal to mid femoral vein, posterior tibial veins , peroneal veins and greater saphenous vein outflow are patent. IMPRESSION: 1. Interval decrease in extent of the previously occlusive now nonocclusive and likely residual rag sorter yamel deep venous thrombosis in the right popliteal, gastrocnemius and distal femoral veins. Reviewed, dictated and finalized at location A. IMPRESSION: 1. Interval decrease in extent of the previously occlusive now nonocclusive an d likely residual chronic deep venous thrombosis in the right popliteal, gastro cnemius and distal femoral veins.
== END 2023-02-08 09:14 | disposition home or self-care (01) ==
PROVIDERS: PCP Family Medicine; Visit Provider Nurse Practitioner
DX: M79.604 Pain in right leg (principal)
CPT/HCPCS: 93971

== ENCOUNTER 2023-06-15 13:33 | Outpatient (CLI) | payer MEDICARE, OTHER, SELFPAY ==
--- NOTE | ~2023-06-15 | PE_ITS ---
EXAMINATION: PET_PETPSMAST_PT DATE: 06/15/2023 15:42 INDICATION: Prostate cancer TECHNIQUE: 8.921 mCi of pipflufolastat F-18 (18-F-DCFPyL) was administered i.v. Low dose computed to mography (CT) images were acquired from the base of the brain to the base of the brain to the proxima l thighs for attenuation correction and anatomic localization. Positron emission tomography (PET) marcelle ges were acquired in the same distribution beginning 91 minutes after injection. Images including fus ed PET/CT images were reconstructed in axial, coronal, and sagittal planes. Automated exposure contro l technique was employed. The dose-length product was 705.92mGy-cm. COMPARISON: 01/05/2022 FINDINGS: Head/neck: Typical pattern of symmetric physiologic increased activity in the lacrimal, parotid and submandibula r glands as well as along the mucosa of the nasal and oral cavities, the patience-, naso- and hypopharynx, the glottis and esophagus. There is also a typical pattern of symmetric tiny foci of mild likely phy siologic neural ganglia uptake at a couple bilateral cervical neural foramina. No pathologically enla rged cervical lymphadenopathy or suspicious foci of increased uptake in the visualized head or neck. Chest: Mild dependent atelectasis in both lungs. No suspicious pulmonary nodules, pneumonia, pulmonary edema or pleural effusion. Mild cardiomegaly. Atherosclerotic coronary artery calcific lesion. No pericard ial effusion. Thoracic aorta is normal in caliber. No pathologically enlarged or PSMA avid thoracic l ymphadenopathy. Abdomen/pelvis/proximal thighs: Physiologic renal accumulation and excretion of activity in the kidneys, bladder and along portions o f ureters. Status post prostatectomy with activity in the partially decompressed bladder extending mo re caudally into the prostatectomy bed. There is an approximately 1-1.5 cm diameter focus of increase d PSMA activity with maximal SUV of 14.6 in the region of the right seminal vesicle but which is with out a discernible correlate on the CT images nonetheless suspicious for local invasion. Photopenic de fects associated with a few low-attenuation hepatic cysts the largest measuring 2.8 cm . Otherwise no rmal degree and slightly heterogenous pattern of increased uptake throughout the liver and spleen wit hout radiologic correlate or dominant PSMA avid lesion. The gallbladder, pancreas and bilateral adren al glands are normal. Moderate uptake scattered throughout the bowels with typical duodenal and proxi mal jejunal predominance and without radiologic correlate, also likely physiologic. There are few sca ttered colonic diverticula without adjacent inflammatory stranding to suggest diverticulitis. Normal appendix. Small fat-containing umbilical hernia. 7 mm PSMA avid lymph node along the proximal left ex ternal iliac chain with maximal SUV of 6.5 consistent with metastatic disease. Indeterminate subcenti meter focus of increased activity with maximal SUV of 5.2 in the abdominal wall musculature at the la teral mid right abdomen which is also without radiologic correlate on the CT images but which would b e an atypical location for metastatic disease. No other abnormal foci of increased uptake or patholog ically enlarged lymphadenopathy in the abdomen, pelvis or proximal thighs. Musculoskeletal: Chronic L5 compression fracture with mild right anterior vertebral body height loss. Unchanged subtle sclerosis at the left ischial without evident PSMA activity. No other suspicious lytic, blastic or P SMA avid bone lesions. IMPRESSION: 1. Small focus of moderate increased uptake at the right seminal vesicle suspicious for residual loca l spread of disease. 2. Mild uptake at a 7 mm left external iliac chain lymph node suspicious for metastatic disease. Reviewed, dictated and finalized at location A. Electronically signed by Luis Manuel Crump
== END 2023-06-15 13:34 | disposition home or self-care (01) ==
LOC: ANHIMG 13:35
PROVIDERS: PCP Family Medicine; Visit Provider Urology
DX: C61 Malignant neoplasm of prostate (principal)
CPT/HCPCS: 78815; A9595

== ENCOUNTER 2024-02-29 08:46 | Outpatient (CLI) | payer MEDICARE, OTHER, SELFPAY ==
--- NOTE | ~2024-02-29 | US_ITS ---
EXAMINATION: US venous doppler [facility] DATE: 02/29/2024 09:28 INDICATION: Left lower limb swelling. Acute embolism and thrombosis. TECHNIQUE: Grayscale ultrasound images without and with compression and Doppler ultrasound images of the left lower extremity veins were obtained. COMPARISON: None. FINDINGS: The visualized portions of left common femoral vein, profunda (deep) femoral vein, peroneal veins, po sterior tibial veins, and greater saphenous vein outflow are patent. There is thrombus in left femora l, popliteal, and gastrocnemius veins. IMPRESSION: 1. Deep vein thrombosis involving left femoral, popliteal, and gastrocnemius veins. Reviewed, dictated and finalized at location A. IMPRESSION: 1. Deep vein thrombosis involving left femoral, popliteal, and gastrocnemius v eipreston.
--- NOTE | ~2024-02-29 | CT_ITS ---
EXAMINATION:CT chest high resolution wo hi DATE: 02/29/2024 09:06 INDICATION: Shortness of breath. TECHNIQUE: Computed tomography (CT) of the chest was performed without intravenous contrast. Automate d exposure control and iterative reconstruction technique were employed. The dose-length product (DLP ) was 204.82 mGy-cm. COMPARISON: CT abdomen and pelvis 08/17/20 FINDINGS: There is mild scarring at the lung apices. There is mild scarring in paraspinal right lower lobe. There is mild chronic peripheral septal thickening in the inferior lungs. No bronchiectasis or honeycombing. No pleural effusion. The heart size is normal. There are coronary artery calcification s. No pericardial effusion. There is mild bilateral gynecomastia. There are cysts in the liver measur ing up to 2.8 cm. There is severe thoracic spondylosis. There is chronic anterior wedging of T6-T8 ve rtebral bodies and L1 vertebral body. IMPRESSION: 1. Mild chronic lung disease. Reviewed, dictated and finalized at location A.
== END 2024-02-29 08:47 | disposition home or self-care (01) ==
LOC: ANHIMG 08:49
PROVIDERS: PCP Family Medicine; Visit Provider Nurse Practitioner
DX: I82.491 Acute embolism and thrombosis of other specified deep vein of right lower extremity (principal); R06.02 Shortness of breath
CPT/HCPCS: 71250; 93971

== ENCOUNTER 2024-05-07 02:50 | Day surgery (SDC) | payer MEDICARE, OTHER, SELFPAY ==
[2024-05-01 15:24] VITALS: BMI 27.0
--- NOTE | 2024-05-01 15:48 | PC.NURSE ---
Spoke with PATIENT regarding medication ELIQUIS. PATIENT verbalizes understanding that the last dose is to be taken on 05/04/2024 and the Endoscopist will instruct them when to restart after the procedure.
[2024-05-07 08:11] VITALS: BP 105/76; PULSE 58; RESP 18; TEMP 36.1; O2SAT 100
--- NOTE | 2024-05-07 08:12 | WPDANESEPPF ---
Anes - Initial Pre Proc Eval Procedure: Operation Date: 05/07/24 09:30 Proposed Procedures p Colonoscopy - Lincoln Castellanos MD Date/Time: 05/07/24 08:12 Surgeon: Lincoln Castellanos MD Pre Op Diagnosis: Personal HX colon polyps Patient Data Age: 74 Gender: M Height: 1.73 m Weight: 80.75 kg Allergies Allergy/AdvReac Type Severity Reaction Status Date / Time prednisone Allergy Intermediate mottled Verified 05/07/24 08:08 tongue nut - unspecified Allergy Mild gets skin Verified 05/07/24 08:08 nodules under his skin Home Medications ?Medication ?Instructions ?Recorded ?Confirmed ?Type cyclosporine 0.05 % eye drops in a 1 drp EACH EYE Q12H 02/14/22 05/07/24 History dropperette (Restasis) degarelix 120 mg subcutaneous 240 mg subcut MONTHLY 08/09/23 05/01/24 History solution (Firmagon) enzalutamide 40 mg tablet (Xtandi) 80 mg PO DAILY 08/09/23 05/07/24 History brimonidine 0.2 %-timolol 0.5 % 1 drp LEFT EYE Q12H 02/29/24 05/07/24 History eye drops (Combigan) vibegron 75 mg tablet (Gemtesa) 75 mg PO DAILY 02/29/24 05/07/24 History apixaban 2.5 mg tablet (Eliquis) 2.5 mg PO BID #180 tabs 03/26/24 05/07/24 Rx cyanocobalamin (vitamin B-12) 1,000 mcg PO DAILY 05/01/24 05/07/24 History 1,000 mcg tablet (Vitamin B-12) enzalutamide 80 mg tablet (Xtandi) 160 mg PO DAILY 05/01/24 05/07/24 History Patient hx anesthesia problems: none Family hx anesthesia problems: none Results Review: All pre-operative results and documents have been reviewed as part of the pre-operative evaluation. FOR[facility]LY [facility] Past Medical History Medical History (Updated 05/07/24 @ 08:13 by Noah Bynum MD) Prostate cancer DVT (deep venous thrombosis) Pure hypercholesterolemia, unspecified Surgical History Surgical History History of prostatectomy (~2020) History of ankle surgery Family History Family History Father Diabetes mellitus Family history of glaucoma Hypertension Malignant neoplasm of prostate Family history of coronary artery disease Mother Hypertension Cerebrovascular accident Family history of dementia Social History Social History Smoking status: Never smoker Second hand tobacco smoke exposure: No Alcohol intake: current Alcohol use details: 1 glass of wine on a rare occasion. Substance use: never Substance use type: does not use Living arrangements: with family Gender identity (if verbalized by the patient): Male Sexual Orientation (if Verbalized by the Patient): Straight or Heterosexual Spiritual care concerns: No Agree to blood products: Yes Anes - Eval Final PreProcedure Day of Procedure 05/07/24 08:12 Patient weight: overweight Heart: regular rate and rhythm Lungs: clear to auscultation Airway: Mallampati scale class II Neurological: alert and oriented Last oral intake: >/= 8 hours ASA classification: III Emergent: no Anesthetic plan: proceed Anesthesia type and monitoring: general GIVS and standard monitoring Results Review: All pre-operative results and documents have been reviewed as part of the pre-operative evaluation. Informed Consent: The patient's anesthetic plan and its attendant risks and benefits were discussed with the patient/family/POA. Questions were solicited and answers provided to the satisfaction of the patient/family/POA.
[2024-05-07] MEDS: LACTATED RINGERS 1,000 ML 150 ML IV CONT (08:28)
--- NOTE | 2024-05-07 08:28 | PM.IMHP ---
H&P: HPI History of Present Illness Date/Time: 05/07/24 08:28 Chief Complaint: Family history of colorectal cancer. Narrative: This patient has family history of colorectal cancer. His father had CRC and he has been having colonoscopies every 5 years. He is currentlly asymptomatic from the GI standpoint. Review of Systems Review of Systems: All systems reviewed & are unremarkable except as noted in HPI and below PMFSH Past Medical History Medical History (Updated 05/07/24 @ 08:30 by Lincoln Castellanos MD) Prostate cancer DVT (deep venous thrombosis) Pure hypercholesterolemia, unspecified Surgical History Surgical History History of prostatectomy (~2020) History of ankle surgery Family History Family History Father Diabetes mellitus Family history of glaucoma Hypertension Malignant neoplasm of prostate Family history of coronary artery disease Mother Hypertension Cerebrovascular accident Family history of dementia Social History Social History Smoking status: Never smoker Second hand tobacco smoke exposure: No Alcohol intake: current Alcohol use details: 1 glass of wine on a rare occasion. Substance use: never Substance use type: does not use Living arrangements: with family Gender identity (if verbalized by the patient): Male Sexual Orientation (if Verbalized by the Patient): Straight or Heterosexual Spiritual care concerns: No Agree to blood products: Yes Meds Home Medications and Allergies Home Medications ?Medication ?Instructions ?Recorded ?Confirmed ?Type cyclosporine 0.05 % eye drops in a 1 drp EACH EYE Q12H 02/14/22 05/07/24 History dropperette (Restasis) degarelix 120 mg subcutaneous 240 mg subcut MONTHLY 08/09/23 05/01/24 History solution (Firmagon) enzalutamide 40 mg tablet (Xtandi) 80 mg PO DAILY 08/09/23 05/07/24 History brimonidine 0.2 %-timolol 0.5 % 1 drp LEFT EYE Q12H 02/29/24 05/07/24 History eye drops (Combigan) vibegron 75 mg tablet (Gemtesa) 75 mg PO DAILY 02/29/24 05/07/24 History apixaban 2.5 mg tablet (Eliquis) 2.5 mg PO BID #180 tabs 03/26/24 05/07/24 Rx cyanocobalamin (vitamin B-12) 1,000 mcg PO DAILY 05/01/24 05/07/24 History 1,000 mcg tablet (Vitamin B-12) enzalutamide 80 mg tablet (Xtandi) 160 mg PO DAILY 05/01/24 05/07/24 History Allergies Allergy/AdvReac Type Severity Reaction Status Date / Time prednisone Allergy Intermediate mottled Verified 05/07/24 08:08 tongue nut - unspecified Allergy Mild gets skin Verified 05/07/24 08:08 nodules under his skin Vital Signs Vital Signs - 24 hr 05/07/24 08:11 Temperature 97 F L Pulse Rate 58 L Respiratory Rate 18 Blood Pressure 105/76 Pulse Oximetry 100 Oxygen Delivery Room Air Exam Const: General: cooperative and healthy appearing Resp: Effort & Inspection: normal respiratory effort and able to speak in complete sentences Auscultation: clear to auscultation bilaterally Cardio: Rate: regular rate Rhythm: regular rhythm GI: Inspection: normal to inspection GI Palp: No No hepatosplenomegaly present Auscultation: normal bowel sounds Rectal Exam: deferred Skin: General skin exam: normal color Psych: Appearance: grossly normal Mental Status: mental status grossly normal Assessment and Plan Assessment and plan (1) Family history of colon cancer: Code(s): Z80.0 - Family history of malignant neoplasm of digestive organs Status: Acute Assessment and Plan: The patient is deemed a good candidate for the procedure. Consent signed. Will proceed.
[2024-05-07 09:29] VITALS: BP 82/56; PULSE 50; RESP 13; O2SAT 97
[2024-05-07 09:39] VITALS: BP 98/63; PULSE 49; RESP 15; O2SAT 100
[2024-05-07 09:49] VITALS: BP 116/80; PULSE 51; RESP 20; O2SAT 100
== END 2024-05-07 10:06 | disposition home or self-care (01) ==
PROVIDERS: PCP Family Medicine; Referring Provider Nurse Practitioner; Visit Provider Internal Medicine Gastroenterology
PROC: 0DJD8ZZ Inspection of Lower Intestinal Tract, Via Natural or Artificial Opening Endoscopic (ICD-10-PCS; CPT 45378; principal; 2024-05-07 09:30)
DX: Z12.11 Encounter for screening for malignant neoplasm of colon (principal); D12.2 Benign neoplasm of ascending colon; K64.0 First degree hemorrhoids; K57.30 Diverticulosis of large intestine without perforation or abscess without bleeding; E78.00 Pure hypercholesterolemia, unspecified; Z79.01 Long term (current) use of anticoagulants; Z98.890 Other specified postprocedural states; Z85.46 Personal history of malignant neoplasm of prostate; Z86.718 Personal history of other venous thrombosis and embolism; Z80.0 Family history of malignant neoplasm of digestive organs; Z80.42 Family history of malignant neoplasm of prostate; Z82.49 Family history of ischemic heart disease and other diseases of the circulatory system
CPT/HCPCS: 45378; 88305; J2003; J2704; J7120